=== PATIENT | female | born 1980 | race Caucasian/White ===

== ENCOUNTER 2016-11-02 21:08 | Emergency (ER) | payer BC, OTHER ==
[~2016-11-02] VITALS: Ht 160 cm; Wt 80.0 kg
[~2016-11-02 21:08] MED LIST: IBUP-1222 PO; LEVO200T PO; OXYC-302 PO
[2016-11-02] MEDS ORDERED: LIOT5TAB6 PO (23:17)
[2016-11-03] VITALS: BP 133/53
== END 2016-11-03 00:02 | disposition home or self-care (01) ==
LOC: ED 23:55
DX: O03.9 Complete or unspecified spontaneous abortion without complication (principal); O99.281 Endocrine, nutritional and metabolic diseases complicating pregnancy, first trimester; E03.9 Hypothyroidism, unspecified; Z98.890 Other specified postprocedural states
CPT/HCPCS: 36415; 76801; 84702; 85025; 86901; 99285

== ENCOUNTER 2017-12-19 08:51 | Inpatient (IN) | payer OTHER ==
[~2017-12-19] VITALS: Ht 160 cm; Wt 104.0 kg
[~2017-12-19 08:51] MED LIST changes: +LIOT5TAB10 PO
[2017-12-22] MEDS ORDERED: OXYTOCIN 30U/ 0.9% NaCL 500ML 500 ML ONE (06:09)
[2017-12-22] MEDS ORDERED: NEWBORN KIT ONE (06:09)
[2017-12-22] MEDS ORDERED: SODIUM CITRATE/CITRIC ACID 30 ML UDC ONE (06:09)
[2017-12-22] MEDS ORDERED: METOCLOPRAMIDE 5 MG/ML, 2ML ONE (06:09)
[2017-12-22 06:11] VITALS: BP 104/55
[2017-12-22] MEDS ORDERED: OXYTOCIN 30U/ 0.9% NaCL 500ML 500 ML IV SCH (06:35)
[2017-12-22] MEDS ORDERED: LACTATED RINGERS 1,000 ML IV SCH ×3 (06:35→11:41)
[2017-12-22] MEDS ORDERED: SODIUM CITRATE/CITRIC ACID 30 ML UDC PO ONE (07:00)
[2017-12-22] MEDS ORDERED: CEFAZOLIN PMX 1GM/50ML 50 ML IVPB ONE (07:00)
[2017-12-22] MEDS ORDERED: ONDANSETRON 2MG/ML, 2ML IVPush ONE (07:00)
[2017-12-22] MEDS ORDERED: METOCLOPRAMIDE 5 MG/ML, 2ML IV ONE (07:00)
[2017-12-22] MEDS ORDERED: LACTATED RINGERS 1,000 ML IVBOLUS ONE (07:00)
[2017-12-22 07:04] LABS: BASOPHILS # (AUTO) 0.04 x10^3/uL (0-0.1); BASOPHILS % (AUTO) 0 % (0-1); EOSINOPHILS # (AUTO) 0.12 x10^3/uL (0-0.4); EOSINOPHILS % (AUTO) 1 % (1-7); LYMPHOCYTES # (AUTO) 2.63 x10^3/uL (1-3.4); LYMPHOCYTES % (AUTO) 23 % (22-44); MD NO; MEAN CORPUSCULAR HEMOGLOBIN 27.8 pg (27.0-34.8); MEAN CORPUSCULAR HGB CONC 33.7 g/dL (32.4-35.8); MEAN CORPUSCULAR VOLUME 82.4 fL (80-100); MEAN PLATELET VOLUME 8.6 fL (7.4-10.4); MONOCYTES # (AUTO) 0.85 x10^3/uL (0.2-0.8); MONOCYTES % (AUTO) 8 % (2-9); NEUTROPHILS # (AUTO) 7.76 x10^3/uL (1.8-6.8); NEUTROPHILS % (AUTO) 68 % (42-75); PLATELET COUNT 275 x10^3/uL (130-400); RED BLOOD COUNT 3.84 x10^6/uL (3.82-5.3); RED CELL DISTRIBUTION WIDTH 14.9 % (9.6-15.2)
[2017-12-22] MEDS ORDERED: HYDROcodone/APAP 7.5-325MG/15ML UDC PO PRN (08:30)
[2017-12-22] MEDS ORDERED: OXYcodone 5 MG/5 ML ORAL.SOL UDC PO PRN (08:30)
[2017-12-22] MEDS ORDERED: ONDANSETRON 2MG/ML, 2ML IVPush PRN (08:30)
[2017-12-22] MEDS ORDERED: MEPERIDINE/PF 25MG/0.5ML IVPush PRN (08:30)
[2017-12-22] MEDS ORDERED: hydrALAzine 20 MG/ML, 1ML IV PRN (08:30)
[2017-12-22] MEDS ORDERED: LABETALOL 5MG/ML, 20ML IV PRN (08:30)
[2017-12-22] MEDS ORDERED: MIDAZOLAM 1 MG/ML, 2ML IV PRN (08:30)
[2017-12-22] MEDS ORDERED: FENTANYL PF 100 MCG/2ML IV PRN (08:30)
[2017-12-22] MEDS ORDERED: HYDROmorphone 1 MG/ML, 1ML IV PRN (08:30)
[2017-12-22] MEDS ORDERED: ALBUTEROL SULFATE 2.5 MG/3 ML NPPB PRN (08:30)
[2017-12-22] MEDS ORDERED: PHENYLEPHRINE 10 MG/ML ONE (08:37)
[2017-12-22] MEDS ORDERED: CEFAZOLIN 1,000 MG ONE (08:37)
[2017-12-22] MEDS ORDERED: DEXAMETHASONE 4 MG/ML, 1ML ONE (08:37)
[2017-12-22] MEDS ORDERED: OXYTOCIN 10 UNITS/ML, 1ML ONE (08:37)
[2017-12-22] MEDS ORDERED: FENTANYL PF 100 MCG/2ML ONE (08:37)
[2017-12-22] MEDS ORDERED: ONDANSETRON 2MG/ML, 2ML ONE (08:37)
[2017-12-22] MEDS ORDERED: KETOROLAC 30 MG/1 ML ONE (08:37)
[2017-12-22] MEDS ORDERED: EPHEDRINE 50 MG/ML, 1ML ONE (08:37)
[2017-12-22] MEDS: OXYTOCIN 30U/ 0.9% NaCL 500ML 500 ML IV SCH ×2 (11:41→21:41)
[2017-12-22] MEDS: LACTATED RINGERS 1,000 ML IV SCH ×2 (11:41→19:41)
[2017-12-22] MEDS ORDERED: ONDANSETRON 2MG/ML, 2ML IV PRN (12:00)
[2017-12-22] MEDS ORDERED: MISOPROSTOL 200 MCG TABLET PR PRN (12:00)
[2017-12-22] MEDS ORDERED: morphine SULFATE 10 MG/ML, 1ML IVPush PRN ×2 (12:00)
[2017-12-22] MEDS ORDERED: KETOROLAC 30 MG/1 ML IM SCH (12:00)
[2017-12-22] MEDS ORDERED: OXYcodone/APAP 5/325MG TABLET PO PRN (12:00)
[2017-12-22] MEDS: PRENATAL VIT/IRON/FA 1 EACH TABLET PO SCH (12:00)
[2017-12-22] MEDS ORDERED: OXYcodone/APAP 5/325MG TABLET ONE (13:18)
[2017-12-22] MEDS ORDERED: HYDROcodone/APAP 5/325 TABLET ONE (13:24)
[2017-12-22] MEDS: HYDROcodone/APAP 5/325 TABLET PO PRN ×2 (13:25→21:52)
[2017-12-22 14:00] VITALS: BP 108/68
[2017-12-22] MEDS: KETOROLAC 30 MG/1 ML IV SCH ×2 (17:30→23:18)
[2017-12-22 19:40] VITALS: BP 103/66
[2017-12-22 20:10] LABS: BASOPHILS # (AUTO) 0.07 x10^3/uL (0-0.1); BASOPHILS % (AUTO) 0 % (0-1); EOSINOPHILS # (AUTO) 0.03 x10^3/uL (0-0.4); EOSINOPHILS % (AUTO) 0 % (1-7); LYMPHOCYTES # (AUTO) 1.95 x10^3/uL (1-3.4); LYMPHOCYTES % (AUTO) 12 % (22-44); MD NO; MEAN CORPUSCULAR HEMOGLOBIN 27.3 pg (27.0-34.8); MEAN CORPUSCULAR HGB CONC 33.4 g/dL (32.4-35.8); MEAN CORPUSCULAR VOLUME 81.6 fL (80-100); MEAN PLATELET VOLUME 8.5 fL (7.4-10.4); MONOCYTES # (AUTO) 0.86 x10^3/uL (0.2-0.8); MONOCYTES % (AUTO) 5 % (2-9); NEUTROPHILS # (AUTO) 13.92 x10^3/uL (1.8-6.8); NEUTROPHILS % (AUTO) 83 % (42-75); PLATELET COUNT 236 x10^3/uL (130-400); RED BLOOD COUNT 3.32 x10^6/uL (3.82-5.3); RED CELL DISTRIBUTION WIDTH 14.7 % (9.6-15.2)
[2017-12-23] VITALS: BP 107/73
[2017-12-23] MEDS: HYDROcodone/APAP 5/325 TABLET PO PRN ×5 (02:06→23:10)
[2017-12-23] MEDS: SIMETHICONE 80 MG CHEW TAB PO PRN ×3 (03:16→23:10)
[2017-12-23] MEDS: LACTATED RINGERS 1,000 ML IV SCH ×2 (03:41→11:41)
[2017-12-23 04:45] VITALS: BP 104/52
[2017-12-23] MEDS: KETOROLAC 30 MG/1 ML IV SCH ×2 (05:39→11:30)
[2017-12-23] MEDS ORDERED: LIOTHYRONINE 5 MCG TABLET HOMEMEDPO SCH (06:00)
[2017-12-23] MEDS: LEVOTHYROXINE 125 MCG TABLET HOMEMEDPO SCH (06:00)
[2017-12-23] MEDS: LIOTHYRONINE 5 MCG TABLET PO SCH (06:00)
[2017-12-23 07:00] VITALS: BP 108/56
[2017-12-23] MEDS ORDERED: GLYCERIN ADULT SUPP PR PRN (07:00)
[2017-12-23] MEDS: OXYTOCIN 30U/ 0.9% NaCL 500ML 500 ML IV SCH (07:41)
[2017-12-23] MEDS: PRENATAL VIT/IRON/FA 1 EACH TABLET PO SCH (08:51)
[2017-12-23] MEDS: DOCUSATE 100 MG CAPSULE PO PRN ×2 (08:51→22:00)
[2017-12-23 19:40] VITALS: BP 131/86
[2017-12-24] MEDS: HYDROcodone/APAP 5/325 TABLET PO PRN ×4 (03:05→17:52)
[2017-12-24] MEDS: LIOTHYRONINE 5 MCG TABLET PO SCH (06:00)
[2017-12-24] MEDS: LEVOTHYROXINE 125 MCG TABLET HOMEMEDPO SCH (06:00)
[2017-12-24 07:15] VITALS: BP 109/72
[2017-12-24] MEDS: SIMETHICONE 80 MG CHEW TAB PO PRN (09:03)
[2017-12-24] MEDS: DOCUSATE 100 MG CAPSULE PO PRN (09:05)
[2017-12-24] MEDS: PRENATAL VIT/IRON/FA 1 EACH TABLET PO SCH (09:05)
[2017-12-24] MEDS ORDERED: IBUP-1222 PO (09:57)
[2017-12-24] MEDS ORDERED: OXYC-302 PO (09:57)
[2017-12-24] MEDS ORDERED: DOCU-131 PO (09:57)
== END 2017-12-24 18:17 | disposition home or self-care (01) | DRG 765 ==
LOC: LDIP 12-22 05:45 → 2NW 12-22 13:50
PROVIDERS: ADMIT Obstetrics & Gynecology; ATTEND Obstetrics & Gynecology
PROC: 10D00Z1 Extraction of Products of Conception, Low, Open Approach (ICD-10-PCS; principal; 2017-12-22)
PROC: 0UB70ZZ Excision of Bilateral Fallopian Tubes, Open Approach (ICD-10-PCS; 2017-12-22)
DX: O34.211 Maternal care for low transverse scar from previous cesarean delivery (principal); Z68.41 Body mass index [BMI] 40.0-44.9, adult; Z37.0 Single live birth; J45.909 Unspecified asthma, uncomplicated; O99.52 Diseases of the respiratory system complicating childbirth; O99.284 Endocrine, nutritional and metabolic diseases complicating childbirth; E66.9 Obesity, unspecified; O69.81X0 Labor and delivery complicated by cord around neck, without compression, not applicable or unspecified; E03.9 Hypothyroidism, unspecified; O99.844 Bariatric surgery status complicating childbirth; Z30.2 Encounter for sterilization; Z3A.39 39 weeks gestation of pregnancy; Z90.721 Acquired absence of ovaries, unilateral; Z90.49 Acquired absence of other specified parts of digestive tract; Z23 Encounter for immunization
CPT/HCPCS: 36415; 85025; 86850; 86900; 88302; G0378; J0690; J1100; J1885; J2405; J3010; J2370; J2590; J2765; J7120

== ENCOUNTER 2020-12-11 17:29 | Emergency (ER) | payer OTHER ==
[~2020-12-11] VITALS: Ht 160 cm; Wt 103.8 kg
[~2020-12-11 17:29] MED LIST changes: +DOCU-131 PO; -OXYC-302 PO; +OXYC1TAB12 PO
--- NOTE | 2020-12-11 17:41 | NUR ---
EKG IN TRIAGE
--- NOTE | 2020-12-11 18:24 | NUR ---
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 PT PLACED IN TRIAGE 2 UNTIL ROOM AVAILABLE.
--- NOTE | 2020-12-11 19:10 | NUR ---
PT HAS HASHIMOTOS DISEASE. FEELS LIKE GOITER HAS RETURNED. NECK PAIN, WEAKNESS, DIARRHEA, UNCLEAR THINKING, WEIGHT GAIN. PT REPORTS SHE STATED THESE SYMPTOMS. PT REPORTS SHE MIGHT BE HAVING A BAD PANIS ATTACK. PT STATES SHE WANTS A CT SCAN PT SAYS SHE TAKES CYMBALTI. PT RAMBLING ABOUT LOTS OF RANDOM SUBJECTS. ATTACHED TO MONITORS. VSS. NADN. BED IN LOW, RAILS ENGAGED. CALL LIGHT ON LAP.
[2020-12-11 19:42] LABS: MICROSCOPIC AUTO
[2020-12-11 19:47] LABS: AMPHETAMINE SCREEN, URINE Negative (Negative); BARBITURATE SCREEN, URINE Negative (Negative); BENZODIAZEPINE SCREEN, URINE Negative (Negative); CANNABINOID SCREEN, URINE Negative (Negative); COCAINE SCREEN, URINE Negative (Negative); METHADONE SCREEN, URINE Negative (Negative); OPIATE SCREEN, URINE Negative (Negative)
[2020-12-11 20:01] LABS: BASOPHILS % (AUTO) 1 % (0-1); EOSINOPHILS % (AUTO) 1 % (1-7); LYMPHOCYTES % (AUTO) 20 % (22-44); MEAN CORPUSCULAR HEMOGLOBIN 24.1 pg (27.0-34.8); MEAN CORPUSCULAR HGB CONC 31.7 g/dL (32.4-35.8); MONOCYTES % (AUTO) 6 % (2-9); NEUTROPHILS % (AUTO) 71 % (42-75); PLATELET COUNT 492 x10^3/uL (130-400); RED BLOOD COUNT 4.38 x10^6/uL (3.82-5.3); RED CELL DISTRIBUTION WIDTH 16.4 % (9.6-15.2)
[2020-12-11 20:10] LABS: ALANINE AMINOTRANSFERASE 18 U/L (12-78); ALBUMIN 3.7 g/dL (3.4-5.0); ANION GAP 10 mmol/L (5-15); CALCIUM 8.5 mg/dL (8.5-10.1); CHLORIDE 105 mmol/L (98-107); CREATININE 0.61 mg/dL (0.55-1.02)
[2020-12-11 20:15] LABS: ALKALINE PHOSPHATASE 66 U/L (45-117); BILIRUBIN,TOTAL 0.3 mg/dL (0.2-1.0); TOTAL PROTEIN 8.1 g/dL (6.4-8.2)
[2020-12-11 20:39] LABS: FREE T4 (FREE THYROXINE) 0.67 ng/dL (0.76-1.46)
[2020-12-11] MEDS ORDERED: LORazepam 1MG TABLET PO ONE (21:30)
[2020-12-11] MEDS ORDERED: LORazepam 1MG TABLET ONE (21:48)
[2020-12-11 21:52] VITALS: BP 150/86
--- NOTE | 2020-12-11 22:12 | NUR ---
Patient/Caregiver given discharge instructions and they have confirmed that they understand the instructions. Patient ambulatory with steady gait. NAD, all questions answered appropriately, denies additional needs at this time. No personal belongings left in room after discharge. pt stated friend will be picking her up.
== END 2020-12-11 22:14 | disposition home or self-care (01) ==
LOC: ED 17:45
DX: F41.1 Generalized anxiety disorder (principal); E03.9 Hypothyroidism, unspecified; R19.7 Diarrhea, unspecified; R53.1 Weakness
CPT/HCPCS: 36415; 80053; 80307; 80320; 81001; 84439; 84443; 84702; 85025; 87086; 93005; 99284; G0480